=== PATIENT | female | born 1985 | race Caucasian/White ===

== ENCOUNTER 2023-09-11 19:54 | Emergency (ER) | payer SELFPAY ==
--- NOTE | ~2023-09-11 | CT_ITS ---
NAME: April Nunez DATE OF : 81 EXAMINATION: CTA PE PROTOCOL DATE: 09/12/23 at 1:53 AM INDICATION: Chest pain. Shortness of breath. TECHNIQUE: Computed tomography angiography (CTA) of the chest was performed with 100 mL Omnipaque-350 intravenous contrast timed to evaluate the pulmonary arteries. Coronal maximum intensity projection 3D-reconstructions were created by the technologist. Automated exposure control and iterative reconst ruction technique were employed. The dose-length product was 342 mGy-cm. COMPARISON: None. FINDINGS: The lungs demonstrate mild dependent atelectasis. No pleural effusion. The heart size is no rmal. No pericardial effusion. There is no pulmonary embolus. There are changes of cholecystectomy. T here is mild thoracic spondylosis. There is a benign bone island in T4 vertebral body. IMPRESSION: 1. No pulmonary embolus. Reviewed, dictated and finalized at location A. IMPRESSION: 1. No pulmonary embolus.
--- NOTE | ~2023-09-11 | XR_ITS ---
EXAMINATION: XR chest 2V 09/11/2023 20:25 INDICATION: Chest pain and shortness of breath PROCEDURE: 2 view chest COMPARISON: No prior studies for comparison. FINDINGS: The lungs are clear. The cardiomediastinal silhouette is within normal limits. There are no pleural effusions. There is no pneumothorax suspected. IMPRESSION: 1: NO ACUTE CARDIOPULMONARY DISEASE. Reviewed, dictated and finalized at location A.
[2023-09-11 19:59] VITALS: BP 128/75; PULSE 82; RESP 15; TEMP 36.7; O2SAT 99
[2023-09-11] MEDS: ASPIRIN 81 MG CHEWABLE TABLET 324 MG PO (20:03)
[2023-09-11 20:18] LABS: Basophils Percent Auto 0.5 % (0.2-1.2); Eosinophils Absolute Auto 0.2 K/mm3 (0-0.3); Hematocrit 36.9 % (37.0-47.0); Hemoglobin 11.8 g/dL (12.0-15.0); Immature Granulocyte Absolute 0.03 K/mm3 (0.00-0.031); Immature Granulocyte Percent A 0.3 % (0-0.5); Lymphocytes Absolute Auto 1.47 K/mm3 (0.9-3.2); Lymphocytes Percent Auto 16.7 % (18.3-44.2); Mean Corpuscular Hemoglobin 27.4 pg (26-34); Mean Corpuscular Volume 85.8 fl (80-100); Mean Platelet Volume 9.8 fl (7.4-10.4); Monocytes Absolute Auto 0.7 K/mm3 (0.1-0.6); Monocytes Percent Auto 7.7 % (2.6-8.5); Neutrophils Absolute Auto 6.4 K/mm3 (1.3-6.7); Neutrophils Percent Auto 72.8 % (45.5-73.1); Platelet Count Result 306 k/mm3 (150-375); Red Cell Distribution Width 14.7 % (11.5-14.5); White Blood Count 8.8 K/mm3 (4.5-10.0)
[2023-09-11 20:27] LABS: Prothrombin Time 13.6 Seconds (11.1-14.7)
[2023-09-11 20:28] LABS: Alanine Aminotransferase 12 U/L (6-35); Albumin Level 4.1 g/dL (3.5-5.1); Alkaline Phosphatase 86 U/L (38-126); Anion Gap 5 mmol/L (8-16); Aspartate Amino Transferase 21 U/L (14-36); Bilirubin,Total 0.4 mg/dL (0.2-1.3); Blood Urea Nitrogen 11 mg/dL (7-17); Calcium 9.1 mg/dL (8.4-10.2); Carbon Dioxide 27 mmol/L (22-30); Chloride 107 mmol/L (98-107); Estimated CRCL calculation 150 ml/min; Estimated Glomerular Filt Rate > 60; Glucose 101 mg/dL (65-110); Lipase 87 U/L (23-300); Partial Thromboplastin Time 31.3 Seconds (22.3-36.8); Sodium 139 mmol/L (137-145)
[2023-09-11 20:38] LABS: Troponin I < 0.012 ng/mL (0.000-0.034)
[2023-09-11 22:03] VITALS: BP 110/62; PULSE 70; RESP 15; O2SAT 100
[2023-09-11 23:50] VITALS: BP 110/66; PULSE 58; RESP 15; O2SAT 98
[2023-09-11 23:57] LABS: Troponin I < 0.012 ng/mL (0.000-0.034)
[2023-09-12] MEDS: ACETAMINOPHEN 500 MG TABLET 1000 MG PO (00:16)
[2023-09-12] MEDS: KETOROLAC 30 MG/ML VIAL (*BKC) IM (00:16)
[2023-09-12 00:37] LABS: D Dimer 0.52 ug/mL (<0.48)
[2023-09-12 00:43] LABS: NT Pro B Type Natriuretic Pept 223 pg/mL (19.9-100)
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
--- NOTE | 2023-09-12 03:55 | PC.NURSE ---
see downtime charting.
== END 2023-09-12 05:37 | disposition home or self-care (01) ==
PROVIDERS: Emergency Provider Emergency Medicine
DX: J40 Bronchitis, not specified as acute or chronic (principal); Z86.711 Personal history of pulmonary embolism; Z59.00 Homelessness unspecified; I45.10 Unspecified right bundle-branch block
CPT/HCPCS: 36415; 71046; 71275; 80053; 83690; 83880; 84484; 85025; 85380; 85610; 85730; 93005; 96372; 99284; A9270; J1885; Q9967